=== PATIENT | male | born 1960 | race Caucasian/White ===

== ENCOUNTER → 2017-05-07 | Outpatient (CLI) | payer BC ==
[~2017-05-07] MED LIST: AFRIN) (GENASAL15 ML NOSE; ALTACE5 MG PO; ASPIR 8181 MG PO; CRESTOR40 MG PO; DEXILANT60 MG PO; MEN'S ONE DAIL1 EACH PO; NORCO 10-325 T1 EACH PO; NORVASC10 MG PO; PLAVIX75 MG PO; SYMBICORT 16010.2 GM INH; TENORMIN25 MG PO
== END | disposition disaster alternative care site (69) ==
LOC: GOPD 05-01 → GRAD 13:49 → GOPD 13:49
PROC: 3E0R3BZ Introduction of Anesthetic Agent into Spinal Canal, Percutaneous Approach (ICD-10-PCS; principal; 2017-05-07)
PROC: 3E0R33Z Introduction of Anti-inflammatory into Spinal Canal, Percutaneous Approach (ICD-10-PCS; 2017-05-07)
DX: M54.5 Low back pain (principal); M51.26 Other intervertebral disc displacement, lumbar region; I10 Essential (primary) hypertension; R01.1 Cardiac murmur, unspecified; E78.5 Hyperlipidemia, unspecified; R12 Heartburn; K21.9 Gastro-esophageal reflux disease without esophagitis; Z98.1 Arthrodesis status; Z86.018 Personal history of other benign neoplasm; Z90.89 Acquired absence of other organs
CPT/HCPCS: J1040